=== PATIENT | male | born 1980 | race Two or more races ===

== ENCOUNTER 2016-08-11 12:53 | Emergency (ER) | payer OTHER ==
[~2016-08-11] VITALS: Ht 162.6 cm; Wt 68.0 kg
[2016-08-11] MEDS ORDERED: methylPREDNISolone SOD SUCC 125 MG/2ML VIAL IV ONE (13:00)
[2016-08-11] MEDS ORDERED: IV NS 0.9% 1,000 ML BAG IV ONE (13:00)
--- NOTE | 2016-08-11 13:00 | NUR ---
pt cem from [facility] vn to er bed 11. here for possible allergic reaction. pt was eating when suddenly felt throat thightening. sob, drooling. was given benadryl 50mg ivp and epi w/ relief. 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 will monitor closely.
--- NOTE | 2016-08-11 13:01 | NUR ---
gonzalo hidalgo at bedside for eval.
[2016-08-11] MEDS ORDERED: methylPREDNISolone SOD SUCC 125 MG/2ML VIAL ONE (13:07)
[2016-08-11] MEDS ORDERED: IV SET PRIMARY 1 EA INFUS.SET MC ONE (13:07)
[2016-08-11] MEDS ORDERED: IV NS 0.9% 1,000 ML ONE (13:07)
--- NOTE | 2016-08-11 14:14 | NUR ---
pt want to go home. called [facility] and talked to kristine. pt is voluntary. d/c in stable condition and was prgiven prescription for prednisone. IV removed. Catheter intact and site benign. Pressure and 4x4 applied to site. No bleeding noted.
[2016-08-11 14:17] VITALS: BP 128/79
== END 2016-08-11 14:17 | disposition home or self-care (01) ==
LOC: ER 12:59
DX: T78.40XA Allergy, unspecified, initial encounter (principal)
CPT/HCPCS: A4606; J2930; J7030; Z7610